=== PATIENT | male | born 1995 | race Caucasian/White ===

== ENCOUNTER 2018-10-13 13:49 | Emergency (ER) | payer OTHER ==
[~2018-10-13] VITALS: Ht 180.3 cm; Wt 117.9 kg
[~2018-10-13 13:49] MED LIST: ADDERALL 20 MG20 MG PO; ADDERALL 5 MG TA5 MG PO; PROAIR HFA8.5 GM INH; PROZAC20 MG PO
== END 2018-10-13 14:07 | disposition home or self-care (01) ==
LOC: ED 13:49
DX: S61.012A Laceration without foreign body of left thumb without damage to nail, initial encounter (principal)

== ENCOUNTER 2019-03-21 08:02 | Emergency (ER) | payer SELFPAY ==
[~2019-03-21] VITALS: Ht 180.3 cm; Wt 117.9 kg
== END 2019-03-21 09:05 | disposition home or self-care (01) ==
LOC: ED 08:02
PROC: 0XQPXZZ Repair Left Index Finger, External Approach (ICD-10-PCS; principal; 2019-03-21)
DX: S61.211A Laceration without foreign body of left index finger without damage to nail, initial encounter (principal); W45.8XXA Other foreign body or object entering through skin, initial encounter
CPT/HCPCS: 12001; 99282-25

== ENCOUNTER 2021-11-12 08:35 | Emergency (ER) | payer OTHER ==
[~2021-11-12] VITALS: Ht 180.3 cm; Wt 136.1 kg
[2021-11-12] MEDS ORDERED: HYDROCODON-ACE1 EA11 PO (09:25)
[2021-11-12] MEDS ORDERED: AMOX TR-K CLV1 EAC1 PO (09:25)
== END 2021-11-12 09:41 | disposition home or self-care (01) ==
LOC: ED 08:35
DX: S61.452A Open bite of left hand, initial encounter (principal); J45.909 Unspecified asthma, uncomplicated; W54.0XXA Bitten by dog, initial encounter
CPT/HCPCS: 73130; 99283-25; A9270

== ENCOUNTER 2023-07-17 18:46 | Emergency (ER) | payer OTHER ==
[~2023-07-17] VITALS: Ht 180.3 cm; Wt 123.2 kg
[~2023-07-17 18:46] MED LIST changes: +AMOX TR-K CLV1 EAC1 PO; +HYDROCODON-ACE1 EA11 PO
[2023-07-17 19:45] LABS: INFLUENZA B NAA NEGATIVE (NEGATIVE); RESPIRATORY SYNCYTIAL VIR NAA NEGATIVE (NEGATIVE)
[2023-07-17] MEDS ORDERED: VENTOLIN HFA18 GM INH (19:59)
[2023-07-17 20:10] VITALS: BP 106/56
== END 2023-07-17 20:10 | disposition home or self-care (01) ==
LOC: ED 18:46
PROVIDERS: Internal Medicine
DX: J20.8 Acute bronchitis due to other specified organisms (principal); J45.909 Unspecified asthma, uncomplicated; Z20.822 Contact with and (suspected) exposure to COVID-19
CPT/HCPCS: 71045; 87502; C9803; J1100; U0002